=== PATIENT | male | born 1990 | race African-American/Black ===

== ENCOUNTER 2017-09-10 23:04 | Emergency (ER) | payer SELFPAY ==
[~2017-09-10] VITALS: Ht 185.4 cm; Wt 70.5 kg
[2017-09-11 00:49] VITALS: BP 110/59
== END 2017-09-11 02:38 | disposition home or self-care (01) ==
LOC: ER 23:04
DX: B34.9 Viral infection, unspecified (principal); F12.10 Cannabis abuse, uncomplicated; F17.210 Nicotine dependence, cigarettes, uncomplicated; Z88.0 Allergy status to penicillin
CPT/HCPCS: 71045; 99283